=== PATIENT | male | born 1955 | race Two or more races ===

== ENCOUNTER 2021-05-05 14:45 | Inpatient (IN) | payer OTHER, MEDICAID ==
[~2021-05-05] VITALS: Ht 160 cm; Wt 68.6 kg
[2021-05-05 15:53] LABS: Basophils # (auto) 0 10 ^3/uL (0-0.2); Basophils % (auto) 0.3 % (0.0-2.0); Eosinophils # (auto) 0 10 ^3/uL (0-0.8); Eosinophils % (auto) 0.2 % (0.0-7.0); Hematocrit 45.3 % (41.0-53.0); Hemoglobin 15.3 g/dL (13.5-17.5); Lymphocytes # (auto) 0.8 10 ^3/uL (0.4-5.4); Lymphocytes % (auto) 11.5 % (10.0-50.0); Mean Corpuscular Hemoglobin 29.6 pg (28.0-32.0); Mean Corpuscular Hgb Conc. 33.7 g/dL (32.0-36.0); Mean Corpuscular Volume 87.7 fL (80.0-100.0); Monocytes # (auto) 0.4 10 ^3/uL (0-1.3); Monocytes % (auto) 6.1 % (0.0-12.0); Neutrophils # (auto) 5.8 10 ^3/uL (1.6-8.6); Neutrophils % (auto) 81.9 % (37.0-80.0); Red Blood Cells 5.16 10^6/uL (4.5-5.90); Red Cell Distribution Width 13.1 % (11.8-14.3)
[2021-05-05 16:09] LABS: Albumin 4.2 g/dL (3.4-5.0); Calcium 8.7 mg/dL (8.5-10.1); Potassium 3.9 mmol/L (3.5-5.1)
[2021-05-05 16:16] LABS: BUN/Creatinine Ratio 18.9; Bilirubin, Total 2.3 mg/dL (0.2-1.0); Total Protein 7.8 g/dL (6.4-8.2)
[2021-05-05] MEDS ORDERED: MORPHINE SULFATE INJECTION 2 MG/ML SYRG IV PRN (21:30)
[2021-05-05] MEDS ORDERED: DEXTROSE (50%) 50ML SYRG IV PRN (21:30)
[2021-05-05] MEDS ORDERED: ACETAMINOPHEN 325 MG TAB PO PRN (21:30)
[2021-05-05] MEDS ORDERED: NITROGLYCERIN 0.4 MG SL TAB SL PRN (21:30)
[2021-05-05] MEDS ORDERED: ONDANSETRON HCL 4 MG/2 ML VIAL IV PRN (21:30)
[2021-05-05] MEDS ORDERED: TEMAZEPAM 15 MG CAP PO PRN (21:30)
[2021-05-05] MEDS ORDERED: PANTOPRAZOLE 40 MG TAB PO ONE (21:33)
[2021-05-05] MEDS: ATORVASTATIN 20 MG TAB PO SCH (22:23)
[2021-05-05] MEDS: InsuLIN REG 1unit/0.01ml Soln (100units/ml) SC SCH (22:23)
[2021-05-05] MEDS: ACCU-CHEK COMFORT CURVE STRIP VI SCH (22:25)
[2021-05-06 04:44] VITALS: BP 145/78
[2021-05-06 05:00] VITALS: BP 145/78
[2021-05-06] MEDS ORDERED: INFLUENZA QUAD 2021-2022 0.5 ML SYRG IM ONE (05:00)
[2021-05-06] MEDS ORDERED: PNEUMOCOCCAL VACC POLYS 25 MCG/0.5 ML VIAL IM ONE (05:00)
[2021-05-06] MEDS ORDERED: ASPI1TAB20 PO (05:10)
[2021-05-06] MEDS ORDERED: LISI40TA11 PO (05:10)
[2021-05-06] MEDS ORDERED: CHOL20002 PO (05:10)
[2021-05-06] MEDS ORDERED: HYDR25TA5 PO (05:10)
[2021-05-06] MEDS ORDERED: SITA100T7 PO (05:10)
[2021-05-06] MEDS ORDERED: ERGO400T PO (05:10)
[2021-05-06] MEDS ORDERED: METF-869 PO (05:10)
[2021-05-06 05:19] LABS: Urine Bacteria NONE SEEN /hpf (None Seen); Urine Blood Negative /uL (Negative); Urine Specific Gravity 1.012 (1.001-1.035); Urine WBC 2 /hpf (0 - 3)
[2021-05-06] MEDS: InsuLIN REG 1unit/0.01ml Soln (100units/ml) SC SCH ×4 (06:25→21:17)
[2021-05-06] MEDS: ACCU-CHEK COMFORT CURVE STRIP VI SCH ×4 (06:25→21:15)
[2021-05-06 09:00] VITALS: BP 136/78
[2021-05-06] MEDS: ASPirin 81 mg TAB PO SCH (09:37)
[2021-05-06] MEDS: PANTOPRAZOLE 40 MG TAB PO SCH (09:38)
[2021-05-06] MEDS: HCTZ 25 MG TAB PO SCH (09:38)
[2021-05-06] MEDS: LISINOPRIL 20 MG TAB PO SCH (09:39)
[2021-05-06] MEDS: ENOXAPARIN SOD 40 MG/0.4 ML SYRINGE SC SCH (09:40)
[2021-05-06 10:43] LABS: Basophils # (auto) 0 10 ^3/uL (0-0.2); Basophils % (auto) 0.4 % (0.0-2.0); Eosinophils # (auto) 0.1 10 ^3/uL (0-0.8); Eosinophils % (auto) 2.5 % (0.0-7.0); Hematocrit 40.3 % (41.0-53.0); Hemoglobin 13.6 g/dL (13.5-17.5); Lymphocytes # (auto) 2.3 10 ^3/uL (0.4-5.4); Lymphocytes % (auto) 39.6 % (10.0-50.0); Mean Corpuscular Hemoglobin 30.1 pg (28.0-32.0); Mean Corpuscular Hgb Conc. 33.9 g/dL (32.0-36.0); Mean Corpuscular Volume 88.9 fL (80.0-100.0); Monocytes # (auto) 0.7 10 ^3/uL (0-1.3); Monocytes % (auto) 12.4 % (0.0-12.0); Neutrophils # (auto) 2.6 10 ^3/uL (1.6-8.6); Neutrophils % (auto) 45.1 % (37.0-80.0); Nucleated Red Blood Cells % 0.1 %; Red Blood Cells 4.53 10^6/uL (4.5-5.90); Red Cell Distribution Width 13.2 % (11.8-14.3); White Blood Cell 5.7 10^3/uL (4.4-10.8)
[2021-05-06 10:57] LABS: Albumin 3.7 g/dL (3.4-5.0); Calcium 8.5 mg/dL (8.5-10.1); Potassium 3.6 mmol/L (3.5-5.1)
[2021-05-06 11:01] LABS: BUN/Creatinine Ratio 19.3; Bilirubin, Total 1.7 mg/dL (0.2-1.0); Total Protein 6.6 g/dL (6.4-8.2)
[2021-05-06 12:00] VITALS: BP 108/63
[2021-05-06 16:30] VITALS: BP 122/70
[2021-05-06] MEDS ORDERED: LORazepam 2MG/ML-1ML VIAL IV ONE (16:30)
[2021-05-06 17:09] LABS: Alcohol, Urine < 3.0 mg/dL (0-10); Amphetamine Screen, Urine NEGATIVE (NEGATIVE); Barbiturate Scree,Urine NEGATIVE (NEGATIVE); Benzodiazephine Screen, Urine NEGATIVE (NEGATIVE); Cannabinoid Screen, Urine NEGATIVE (NEGATIVE); Cocaine Screen, Urine NEGATIVE (NEGATIVE); Opiate Scree,Urine NEGATIVE (NEGATIVE); Phencyclidine Screen, Urine NEGATIVE (NEGATIVE)
[2021-05-06] MEDS: ATORVASTATIN 20 MG TAB PO SCH (21:03)
[2021-05-06 22:00] VITALS: BP 130/71
[2021-05-07 05:00] VITALS: BP 157/89
[2021-05-07] MEDS: ACCU-CHEK COMFORT CURVE STRIP VI SCH ×4 (06:23→21:19)
[2021-05-07] MEDS: InsuLIN REG 1unit/0.01ml Soln (100units/ml) SC SCH ×4 (06:23→21:19)
[2021-05-07 07:43] LABS: Potassium 3.4 mmol/L (3.5-5.1)
[2021-05-07 08:13] LABS: BUN/Creatinine Ratio 18.9; Calcium 8.3 mg/dL (8.5-10.1); Magnesium 2.8 mg/dL (1.6-2.6)
[2021-05-07 09:00] VITALS: BP 142/94
[2021-05-07] MEDS: ASPirin 81 mg TAB PO SCH (09:27)
[2021-05-07] MEDS: HCTZ 25 MG TAB PO SCH (09:27)
[2021-05-07] MEDS: LISINOPRIL 20 MG TAB PO SCH (09:28)
[2021-05-07] MEDS: ENOXAPARIN SOD 40 MG/0.4 ML SYRINGE SC SCH (09:28)
[2021-05-07] MEDS: PANTOPRAZOLE 40 MG TAB PO SCH (09:28)
[2021-05-07] MEDS: POTASSIUM CHLORIDE 20 MEQ, LIDOCAINE 1% (LOCAL ANESTH.) 2 ML in SODIUM CHL 0.9% 100 ML IV ONE (11:00)
[2021-05-07 11:57] LABS: Basophils # (auto) 0.1 10 ^3/uL (0-0.2); Eosinophils # (auto) 0.1 10 ^3/uL (0-0.8); Eosinophils % (auto) 2.1 % (0.0-7.0); Hematocrit 38.5 % (41.0-53.0); Hemoglobin 13.3 g/dL (13.5-17.5); Lymphocytes # (auto) 3.1 10 ^3/uL (0.4-5.4); Lymphocytes % (auto) 51.3 % (10.0-50.0); Mean Corpuscular Hemoglobin 29.7 pg (28.0-32.0); Mean Corpuscular Hgb Conc. 34.6 g/dL (32.0-36.0); Mean Corpuscular Volume 85.9 fL (80.0-100.0); Monocytes # (auto) 0.7 10 ^3/uL (0-1.3); Monocytes % (auto) 10.9 % (0.0-12.0); Neutrophils # (auto) 2.1 10 ^3/uL (1.6-8.6); Neutrophils % (auto) 34.7 % (37.0-80.0); Nucleated Red Blood Cells % 1.1 %; Red Blood Cells 4.48 10^6/uL (4.5-5.90)
[2021-05-07] MEDS ORDERED: LIDOCAINE 2%HCL (LOCAL ANESTH.) INJ 20ML MDV ONE (12:03)
[2021-05-07] MEDS ORDERED: IODIXANOL 320MG/ML 100ML BTL IV ONE ×2 (12:03→13:20)
[2021-05-07 12:09] LABS: INR 1.05 (0.9-1.15); Partial Thromboplastin Time 27.8 sec (23.6-33.0)
[2021-05-07 12:32] LABS: BUN/Creatinine Ratio 18.3; Calcium 8.2 mg/dL (8.5-10.1); Potassium 3.3 mmol/L (3.5-5.1)
[2021-05-07] MEDS ORDERED: fentaNYL CITRATE 100 MCG/2 ML VL ONE (12:52)
[2021-05-07] MEDS ORDERED: MIDAZOLAM HCL 2MG/2ML 2ml VIAL (1mg/ml) ONE (12:52)
[2021-05-07] MEDS ORDERED: HEPARIN SODIUM (PORCINE) 5000 UNITS/ML 1ML VIAL ONE (12:52)
[2021-05-07] MEDS ORDERED: VERAPAMIL 2.5MG/ML INJ 2ML VIAL IV ONE (12:52)
[2021-05-07] MEDS ORDERED: ANGIOMAX 250 MG VIAL IV ONE (12:52)
[2021-05-07] MEDS ORDERED: SODIUM CHL 0.9% 0 ML ONE (12:53)
[2021-05-07] MEDS ORDERED: POTASSIUM CHL 20 Meq TABLET PO ONE (13:15)
[2021-05-07 17:00] VITALS: BP 131/81
[2021-05-07] MEDS: ATORVASTATIN 20 MG TAB PO SCH (21:19)
[2021-05-07 22:02] VITALS: BP 129/84
[2021-05-08 05:02] VITALS: BP 149/83
[2021-05-08] MEDS: ACCU-CHEK COMFORT CURVE STRIP VI SCH ×2 (06:27→12:29)
[2021-05-08] MEDS: InsuLIN REG 1unit/0.01ml Soln (100units/ml) SC SCH ×2 (06:28→12:31)
[2021-05-08 08:00] VITALS: BP 134/74
[2021-05-08 08:32] LABS: Calcium 8.7 mg/dL (8.5-10.1); Magnesium 2.3 mg/dL (1.6-2.6); Potassium 4.1 mmol/L (3.5-5.1)
[2021-05-08 08:34] LABS: BUN/Creatinine Ratio 19.6
[2021-05-08 08:59] VITALS: BP 134/74
[2021-05-08] MEDS: ASPirin 81 mg TAB PO SCH (09:46)
[2021-05-08] MEDS: LISINOPRIL 20 MG TAB PO SCH (09:50)
[2021-05-08] MEDS: PANTOPRAZOLE 40 MG TAB PO SCH (09:50)
[2021-05-08] MEDS: HCTZ 25 MG TAB PO SCH (09:50)
[2021-05-08] MEDS: ENOXAPARIN SOD 40 MG/0.4 ML SYRINGE SC SCH (09:50)
[2021-05-08 13:00] VITALS: BP 145/79
== END 2021-05-08 13:45 | disposition home or self-care (01) | DRG 287 ==
LOC: ER 14:45 → TELE 21:26 → TELE-WESTW 05-06 04:00
PROVIDERS: ADMIT Nurse Practitioner; ATTEND Internal Medicine
PROC: 4A023N7 Measurement of Cardiac Sampling and Pressure, Left Heart, Percutaneous Approach (ICD-10-PCS; principal; 2021-05-07)
PROC: B211YZZ Fluoroscopy of Multiple Coronary Arteries using Other Contrast (ICD-10-PCS; 2021-05-07)
PROC: B215YZZ Fluoroscopy of Left Heart using Other Contrast (ICD-10-PCS; 2021-05-07)
DX: I48.19 Other persistent atrial fibrillation (principal); I49.9 Cardiac arrhythmia, unspecified; E87.6 Hypokalemia; E78.5 Hyperlipidemia, unspecified; R42 Dizziness and giddiness; I10 Essential (primary) hypertension; E11.9 Type 2 diabetes mellitus without complications; Z20.822 Contact with and (suspected) exposure to COVID-19; I25.10 Atherosclerotic heart disease of native coronary artery without angina pectoris; Z83.3 Family history of diabetes mellitus
CPT/HCPCS: 36415; 36600; 70450; 70551; 71045; 80048; 80053; 80061; 80307; 81001; 82010; 82306; 82805; 82962; 83036; 83735; 84443; 84484; 85025; 85610; 85730; 87426; 93005; 93306; 93458; 93886; 95819; 97163; 99152; 99153; G0378; J1815; J2001; J2250; Q9967